=== PATIENT | male | born 1990 | race Two or more races ===

== ENCOUNTER 2017-02-09 02:22 | Emergency (ER) | payer OTHER ==
[2017-02-09 02:34] VITALS: O2SAT 99
--- NOTE | 2017-02-09 04:21 | ED PDOC ---
HPI: Psych/Substance Abuse Time Seen by Provider: 02/09/17 02:39 Chief Complaint (Nursing): Alcohol Ingestion Chief Complaint (Provider): Alcohol Ingestion History Per: Patient History/Exam Limitations: intoxication Onset/Duration Of Symptoms: Hrs Modifying Factor(s): Alcohol Additional Complaint(s): 2:39 Filemon Dale is a 26 year old male that was brought to the ED via EMS for public intoxication. Patient was found sleeping on the side walk near the [place]. Patient unable to provided further medical history secondary to intoxication. Past Medical History Reviewed: Historical Data, Nursing Documentation, Vital Signs Vital Signs: Last Vital Signs Temp 97.8 F 02/09/17 02:31 Pulse 78 02/09/17 02:31 Resp 20 02/09/17 02:31 BP 146/74 02/09/17 02:31 Pulse Ox 99 02/09/17 02:31 - Family History Family History: States: Unknown Family Hx - Allergies Allergies/Adverse Reactions: Allergies Allergy/AdvReac Type Severity Reaction Status Date / Time shellfish derived Allergy Mild SWELLING Verified 02/09/17 02:30 Review of Systems Review Of Systems: ROS cannot be obtained secondary to pt's inabilty to answer questions. Physical Exam - Reviewed Nursing Documentation Reviewed: Yes Vital Signs Reviewed: Yes - Physical Exam Appears: Positive for: Non-toxic, No Acute Distress Head Exam: Positive for: ATRAUMATIC, NORMOCEPHALIC Skin: Positive for: Normal Color, Warm Eye Exam: Positive for: Normal appearance, EOMI, PERRL Cardiovascular/Chest: Positive for: Regular Rate, Rhythm. Negative for: Murmur Respiratory: Positive for: Normal Breath Sounds. Negative for: Wheezing Neurologic/Psych: Positive for: Alert, Oriented, Mood/Affect (speech is slurred) , Gait (unsteayd) - ECG O2 Sat by Pulse Oximetry: 99 (RA) Pulse Ox Interpretation: Normal Medical Decision Making Medical Decision Makin:39 Impression: Alcohol Ingestion Plan: * Patient will be placed in hospital until reaching clinical sobriety. Scribe Attestation: Documented by Diana Siddiqui, acting as a scribe for KEENA Cooper Provider Scribe Attestation: All medical record entries made by the Scribe were at my direction and personally dictated by me. I have reviewed the chart and agree that the record accurately reflects my personal performance of the history, physical exam, medical decision making, and the department course for this patient. I have also personally directed, reviewed, and agree with the discharge instructions and disposition. Disposition - Clinical Impression Clinical Impression: Alcohol abuse with intoxication - Patient ED Disposition Is Patient to be Admitted: Transfer of Care - Disposition Disposition: Routine/Home Disposition Time: 06:00 Condition: STABLE Patient Signed Over To: Duke Negron Handoff Comments: sobriety
[2017-02-09 08:31] VITALS: RESP 18
--- NOTE | 2017-02-09 11:19 | ED PDOC ---
- ECG O2 Sat by Pulse Oximetry: 99 (RA) Pulse Ox Interpretation: Normal Medical Decision Making Medical Decision Making: Time: 0700 Pt signed over to me by Dr. Negron pending clinical sobriety. Scribe Attestation: Documented by Hanane Angeles acting as a scribe for Joel jones MD. Provider Attestation: All medical record entries made by the Scribe were at my direction and personally dictated by me. I have reviewed the chart and agree that the record accurately reflects my personal performance of the history, physical exam, medical decision making, and the department course for this patient. I have also personally directed, reviewed, and agree with the discharge instructions and disposition. Disposition Counseled Patient/Family Regarding: Studies Performed, Diagnosis, Need For Followup - Clinical Impression Clinical Impression: Alcohol abuse with intoxication - POA Present On Arrival: None - Disposition Referrals: [facility] [Provider Group] (2 to 3 days) Disposition: Routine/Home Disposition Time: 11:20 Condition: GOOD Instructions: Alcohol Intoxication (ED) Progress Note - Review of Symptoms Events since last encounter: Time: 1118 Pt awake and alert with steady gait. Pt denies any suicidal or homicidal ideation, hallucinations and other medical complaints. No clinical signs of intoxication, pt stable for d/c home.
[2017-02-09 11:28] VITALS: BP 130/69; PULSE 82; TEMP 97.8
== END 2017-02-09 11:30 | disposition home or self-care (01) ==
LOC: H.ER 02:22
DX: F10.129 Alcohol abuse with intoxication, unspecified (principal); Y90.8 Blood alcohol level of 240 mg/100 ml or more
CPT/HCPCS: 99283; G0480